=== PATIENT | male | born 1985 | race Caucasian/White ===

== ENCOUNTER 2019-02-05 06:49 | Day surgery (SDC) | payer BC ==
[~2019-02-05 06:49] MED LIST: Dexamethasone 4 MG/ML 5 ML MDV ONE; HYDROmorphone 0.5 MG/0.5 ML Syringe ONE; Ketorolac 30 MG/ML SDV ONE; Lactated Ringers 1,000 ML IV SCH; Lactated Ringers 1,000 ML ONE; Lidocaine 1% 6 ML ONE; Lidocaine 1%/Sod Bicarbonate in NS 8.4% 1 ML Syringe IDERM PRN; Midazolam 1 MG/ML 2 ML SDV ONE; Ondansetron 4 MG/2 ML SDV ONE; Propofol 200 MG/20 ML SDV ONE; Sodium Chloride 0.9% 10 ML Syringe FLUSH PRN; fentaNYL 250 MCG/5 ML SDV ONE
--- NOTE | 2019-02-05 06:54 | PCM.PREANE ---
Preanesthetic Assessment - Anesthesia/Transfusion/Family Hx Anesthesia History: Prior Anesthesia Without Reaction Family History of Anesthesia Reaction: No Transfusion History: No Prior Transfusion(s) Intubation History: Unknown - Review of Systems General: No Symptoms Pulmonary: No Symptoms (ETOH: rarely) Cardiovascular: No Symptoms Gastrointestinal: No Symptoms Neurological: No Symptoms Other: Reports: None (History of kidney stones with lithrotripsy), Sinus Problem (sinus congestion noted/sore throat) - Physical Assessment NPO Status Date: 02/04/19 NPO Status Time: 21:00 Vital Signs: HR:87 BP:131/82 Resp:20 Sat:96% Temp:98.6f Height: 1.78 m Weight: 110 kg ASA Class: 1 Mental Status: Alert & Oriented x3 Airway Class: Mallampati = 2 Dentition: Reports: Normal Dentition, Broken Tooth/Teeth, Caries Thyro-Mental Finger Breadths: 3 Mouth Opening Finger Breadths: 3 ROM/Head Extension: Full Lungs: Clear to Auscultation, Normal Respiratory Effort Cardiovascular: Regular Rate, Regular Rhythm, No Murmurs - Lab Values: MRSA: negative - Allergies Allergies/Adverse Reactions: Allergies Allergy/AdvReac Type Severity Reaction Status Date / Time No Known Allergies Allergy Verified 02/04/19 17:15 - Anesthesia Plan Pre-Op Medication Ordered: None - Acknowledgements Anesthesia Type Planned: General Anesthesia Pt an Appropriate Candidate for the Planned Anesthesia: Yes Alternatives and Risks of Anesthesia Discussed w Pt/Guardian: Yes Pt/Guardian Understands and Agrees with Anesthesia Plan: Yes PreAnesthesia Questionnaire - Past Health History Medical/Surgical History: Denies Medical/Surgical History Genitourinary History: Reports: Renal Calculus - HOME MEDS Home Medications: Home Meds D-Methorphan/PE/Acetaminophen [Daytime Cold-Flu Liquid] 1 dose PO Q6H PRN [History] Dm/Acetaminophen/Doxylamine [Night Cold-Flu Relief Liq Gel] 1 cap PO Q6H PRN [History] - CURRENT (IN HOUSE) MEDS Current Meds: Current Medications Lactated Ringer's (Ringers, Lactated) 1,000 mls @ 125 mls/hr IV ASDIRECTED BRITNEY Stop: 02/05/19 23:00 Lidocaine/Sodium Bicarbonate (Buffered Lidocaine 1% In Ns 8.4%) 0.25 ml IDERM ONETIME PRN PRN Reason: Prior to IV Start Stop: 02/05/19 18:00 Sodium Chloride (Saline Flush) 10 ml FLUSH ASDIRECTED PRN PRN Reason: Keep Vein Open Stop: 02/05/19 18:00 Discontinued Medications Dexamethasone (Dexamethasone) Confirm Administered Dose 20 mg .ROUTE .STK-MED ONE Stop: 02/05/19 06:21 Fentanyl (Sublimaze) Confirm Administered Dose 250 mcg .ROUTE .STK-MED ONE Stop: 02/05/19 06:22 Hydromorphone HCl (Dilaudid) Confirm Administered Dose 0.5 mg .ROUTE .STK-MED ONE Stop: 02/05/19 06:21 Lidocaine HCl (Xylocaine-Mpf 1%) Confirm Administered Dose 6 mls @ as directed .ROUTE .STK-MED ONE Stop: 02/05/19 06:21 Lactated Ringer's (Ringers, Lactated) Confirm Administered Dose 1,000 mls @ as directed .ROUTE .STK-MED ONE Stop: 02/05/19 06:21 Ketorolac Tromethamine (Toradol) Confirm Administered Dose 30 mg .ROUTE .STK- MED ONE Stop: 02/05/19 06:21 Midazolam HCl (Versed 1 Mg/Ml) Confirm Administered Dose 2 mg .ROUTE .STK-MED ONE Stop: 02/05/19 06:22 Ondansetron HCl (Zofran) Confirm Administered Dose 4 mg .ROUTE .STK-MED ONE Stop: 02/05/19 06:21 Propofol (Diprivan 20 Ml) Confirm Administered Dose 200 mg .ROUTE .STK-MED ONE Stop: 02/05/19 06:22
[2019-02-05] MEDS ORDERED: Propofol 200 MG/20 ML SDV ONE (07:33)
[2019-02-05] MEDS: Bupivacaine 0.5%/EPINEPHrine 1:200,000 50 ML MDV ONE ×2 (07:50→07:59)
[2019-02-05] MEDS ORDERED: Ondansetron 4 MG/2 ML SDV IVPUSH PRN (07:51)
[2019-02-05] MEDS ORDERED: HYDROmorphone 0.5 MG/0.5 ML Syringe IVPUSH PRN (07:51)
[2019-02-05] MEDS ORDERED: diphenhydrAMINE 50 MG/ML SDV IVPUSH PRN (07:51)
[2019-02-05] MEDS ORDERED: Albuterol 0.083% 2.5 MG/3 ML Neb Soln NEB PRN (07:51)
[2019-02-05] MEDS ORDERED: ePHEDrine 50 MG/ML SDV IVPUSH PRN (07:51)
[2019-02-05] MEDS ORDERED: fentaNYL 100 MCG/2 ML SDV IVPUSH PRN (07:51)
[2019-02-05] MEDS ORDERED: Phenylephrine 1 MG in Sodium Chloride 0.9% 10 ML IV SCH (08:00)
[2019-02-05] MEDS ORDERED: Phenylephrine/Normal Saline 100 MCG/ML 10 ML Syringe ONE (08:06)
[2019-02-05] MEDS ORDERED: Lactated Ringers 1,000 ML ONE (08:51)
--- NOTE | 2019-02-05 09:25 | PCM.POSTAN ---
POST ANESTHESIA ASSESSMENT - MENTAL STATUS Mental Status: Alert - VITAL SIGNS Vital Signs: Last Vital Signs Temp 07.6f 02/05/19917 Pulse 88 02/05/19917 Resp 12 02/05/19917 BP 115/68 02/05/19917 Pulse Ox 92 02/05/19917 - RESPIRATORY Respiratory Status: Respiratory Rate WNL, Airway Patent, O2 Saturation Stable, Supplemental Oxygen - CARDIOVASCULAR CV Status: Pulse Rate WNL, Blood Pressure Stable - GASTROINTESTINAL GI Status: No Symptoms - POST OP HYDRATION Hydration Status: Adequate & Stable
--- NOTE | 2019-02-05 09:29 | PCM.PRNOTE ---
- Free Text/Narrative Note: Date: 02/05/2019 Operation: open right inguinal hernia repair Surgeon: Delroy Booker MD Findings: direct right inguinal hernia. Ilioinguinal and iliohypogastric nerves identified and preserved. 7.5 x 15 cm piece of Progrip mesh cut to size and placed for repair. Detailed report: The patient was taken to the operating room and placed supine on the table. Timeout was performed. General anesthesia with LMA was administered. Abdominal hair was clipped, and the right lower abdomen and groin was prepped and draped in usual sterile fashion. 20 cc of half percent Marcaine with epinephrine was injected intradermally and in the subcutaneous fat along the projection of the inguinal ligament on the right side. Was used to make an 8 cm incision along the projection of the inguinal ligament, and dissection was carried down to the external oblique aponeurosis. The external inguinal ring was identified, and an additional 10 cc of local anesthetic was injected just deep to the aponeurotic fibers. A 15 blade was used to make a stab incision in line with the fibers, and Metzenbaum scissors were used to bluntly separate the underlying spermatic cord from the aponeurotic fibers. The external oblique aponeurosis was then opened with scissors, and the spermatic cord was bluntly dissected from surrounding attachments. A right angle clamp was passed beneath the spermatic cord at the pubic tubercle, and a Kelin was placed around all structures. Blunt dissection was used to separate cremasteric fibers from the cord. There was a clear direct inguinal hernia, and a cord lipoma that was removed. No significant indirect hernia sac was identified. During dissection , the ilioinguinal, and iliohypogastric nerve were identified and preserved. A 9 cm x 14 cm piece of pro-licensed retail supervisor mesh was then introduced to the field. This was cut to size, and Prolene suture was used to secure the mesh at Lev's ligament. 2 cm overlap of the mesh at the pubic tubercle both medially and inferiorly was ensured. Additional running Prolene suture was used to secure the inferolateral portion of the mesh to the shelving edge of the inguinal ligament. The superior portion of the mesh was cut to permit passage of the spermatic cord, and the internal inguinal ring was re-created using Prolene suture bringing the arms of the mesh together. The pinky finger was able to pass through this opening next to the spermatic cord. The mesh was laid flat deep to the aponeurotic fibers. Vicryl suture was used to reapproximate the leaflets of the external oblique aponeurosis. Additional suture was used to bring Jia's fascia together, and Vicryl suture was used to close the skin in a running fashion. Dermabond was applied. The patient tolerated the procedure well, no complications. Delroy Booker MD General Surgery
--- NOTE | 2019-02-05 10:40 | PCM48HPAN ---
Post Anesthesia Note - EVALUATION WITHIN 48HRS OF ANESTHETIC Vital Signs in Normal Range: Yes Patient Participated in Evaluation: Yes Respiratory Function Stable: Yes Airway Patent: Yes Cardiovascular Function Stable: Yes Hydration Status Stable: Yes Pain Control Satisfactory: Yes Nausea and Vomiting Control Satisfactory: Yes Mental Status Recovered: Yes Vital Signs: Last Vital Signs Temp 36.9 C 02/05/19 10:03 Pulse 85 02/05/19 10:03 Resp 16 02/05/19 10:03 BP 123/64 02/05/19 10:03 Pulse Ox 94 L 02/05/19 10:03
== END 2019-02-05 12:30 | disposition home or self-care (01) ==
LOC: JD.SDS 06:49
PROVIDERS: ATTEND Surgery
DX: K40.90 Unilateral inguinal hernia, without obstruction or gangrene, not specified as recurrent (principal)
CPT/HCPCS: 49505; C1781; J1100; J1170; J1885; J2001; J2250; J2370; J2405; J2704; J3010; J3490; J7120; 00830

== ENCOUNTER 2022-05-27 20:21 | Emergency (ER) | payer BC | END 2022-05-27 20:51 | disposition home or self-care (01) | LOC: JD.ED 20:21 | DX: K08.89 Other specified disorders of teeth and supporting structures (principal) | CPT/HCPCS: 99282 ==